=== PATIENT | male | born 1995 | race Two or more races ===

== ENCOUNTER 2021-11-14 08:19 | Emergency (ER) | payer OTHER ==
[~2021-11-14] VITALS: Ht 170.2 cm; Wt 74.4 kg
[2021-11-14] MEDS ORDERED: HYDROmorphone HCL 2 MG/ML VL/or syr IV ONE (09:00)
[2021-11-14] MEDS ORDERED: ETOMIDATE (2MG/ML) 20ML VIAL IV ONE (09:00)
[2021-11-14] MEDS ORDERED: ONDANSETRON HCL 4 MG/2 ML VIAL IV ONE (09:00)
[2021-11-14 10:00] VITALS: BP 155/84
== END 2021-11-14 11:47 | disposition home or self-care (01) ==
LOC: ER 08:19
DX: S43.004A Unspecified dislocation of right shoulder joint, initial encounter (principal); X50.9XXA Other and unspecified overexertion or strenuous movements or postures, initial encounter; Y93.89 Activity, other specified; Y92.89 Other specified places as the place of occurrence of the external cause; Y99.8 Other external cause status
CPT/HCPCS: 23650; 73020; 73030; 96374; 96375; 99285; J1170; J2405